=== PATIENT | male | born 1995 | race Two or more races ===

== ENCOUNTER 2018-08-01 13:33 | Emergency (ER) | payer OTHER ==
[~2018-08-01] VITALS: Ht 177.8 cm; Wt 70.3 kg
[2018-08-01 13:39] VITALS: BP 125/75
[2018-08-01] MEDS ORDERED: LIDOCAINE 1%-EPI 1:100,000 50 ML VIAL IJ ONE (14:00)
[2018-08-01] MEDS ORDERED: TDAP [DIPH/PERTUSSIS/TET] 0.5 ML VIAL IM ONE ×2 (14:00→14:18)
[2018-08-01] MEDS ORDERED: LIDOCAINE 1%-EPI 1:100,000 20 ML VIAL ONE (14:18)
--- NOTE | 2018-08-01 14:23 | NUR ---
SUTURING DONE BY YUDY SCHROEDER.
--- NOTE | 2018-08-01 14:51 | NUR ---
Patient discharged to home in stable condition. Written and verbal after care instructions given. Patient verbalizes understanding of instruction.
== END 2018-08-01 14:53 | disposition home or self-care (01) ==
LOC: ER 13:33
DX: S81.811A Laceration without foreign body, right lower leg, initial encounter (principal); Z60.2 Problems related to living alone; W26.8XXA Contact with other sharp object(s), not elsewhere classified, initial encounter; Y93.89 Activity, other specified; Y92.89 Other specified places as the place of occurrence of the external cause; Y99.8 Other external cause status
CPT/HCPCS: 12001; 90471; 90715; 99283; J3490 ×2; A6402; A6403